=== PATIENT | female | born 1960 | race Caucasian/White ===

== ENCOUNTER 2020-04-22 08:58 | Day surgery (SDC) | payer BC, OTHER ==
[2020-04-22] MEDS: Lactated Ringers 1,000 ML IV SCH (09:16)
[2020-04-22] MEDS ORDERED: fentaNYL 100 MCG/2 ML SDV ONE (11:34)
[2020-04-22] MEDS ORDERED: Propofol 200 MG/20 ML SDV ONE ×2 (11:34→11:44)
--- NOTE | 2020-04-22 13:27 | OR ---
DATE OF SURGERY: 04/22/2020. REFERRING PROVIDER: Aarti Jung DO PRE-OPERATIVE DIAGNOSIS: Screening colonoscopy. The patient's last colonoscopy was about 10 years ago per patient report. There is no known family history of colon cancer or significant colon polyps. POST-OPERATIVE DIAGNOSES: 1. 3 mm polyp at 85 cm, removed using cold forceps. 2. Significant sigmoid diverticulosis. 3. Normal-appearing distal ileum. PROCEDURE: Colonoscopy with polypectomy x1 using cold forceps. SURGEON: Eliot Ac M.D. ANESTHESIA: Monitored anesthesia care. BOWEL PREP: Good. Yuly is a 59-year-old female who was brought to the endoscopy suite after discussing risks and benefits of the procedure. Informed consent was obtained for conscious sedation and colonoscopy with or without biopsy and/or polypectomy. We also discussed possibility of missed lesions. Pre-procedure exam was unremarkable. IV, oxygen, and monitors were placed. The patient was placed in the left lateral decubitus position. Sedation was administered and a digital rectal exam was performed and unremarkable. Colonoscope was passed into the rectum and slowly advanced all the way to the cecum. Cecum was viewed and photographed. Ileocecal valve was intubated and distal ileum was normal in appearance. The colonoscope was slowly withdrawn and the mucosa was closed observed in a direct circumferential manner. The ascending colon was unremarkable. The transverse colon revealed 3 mm polyp at 85 cm, removed using cold forceps. The descending colon was unremarkable. The sigmoid colon was remarkable for significant diverticulosis. Retroflexion was performed and rectal mucosa was unremarkable. Scope was removed. The patient tolerated the procedure well. The patient was monitored until that baseline status. Discharge instructions were reviewed and the patient was discharged in good condition. COMPLICATIONS: None. TOTAL TIME: 23 minutes. ESTIMATED BLOOD LOSS: Less than 1 mL. RECOMMENDATIONS/FOLLOW-UP: We will await results of path report to determine ideal followup interval. I would like to kindly thank Aarti Jung for this referral. DMB: 04/22/2020 12:18:08 MODL: 04/22/2020 12:47:01 /[id number]
== END 2020-04-22 13:25 | disposition home or self-care (01) ==
LOC: VM.SDS 08:58
PROVIDERS: ATTEND Family Medicine
DX: Z12.11 Encounter for screening for malignant neoplasm of colon (principal); K63.5 Polyp of colon; K57.30 Diverticulosis of large intestine without perforation or abscess without bleeding; E66.9 Obesity, unspecified; N32.81 Overactive bladder; Z98.890 Other specified postprocedural states; Z79.899 Other long term (current) drug therapy; Z01.812 Encounter for preprocedural laboratory examination; Z20.822 Contact with and (suspected) exposure to COVID-19; Z68.33 Body mass index [BMI] 33.0-33.9, adult
CPT/HCPCS: 00812; J2704; J3010; J7120; U0002